=== PATIENT | male | born 1955 | race Caucasian/White ===

== ENCOUNTER 2018-05-04 06:05 | Day surgery (SDC) | payer MEDICAID ==
[~2018-05-04] VITALS: Ht 165.1 cm; Wt 76.2 kg
[~2018-05-04 06:05] MED LIST: BALANCED SALT IRRIG SOLN COMB1 500ML OP ONE; HYDR25TA PO; OMEP40CA34 PO; SIMV10TA6 PO
[2018-05-04] MEDS ORDERED: CYCLOPENTOLATE HCL 1% OPHTH DROPS 2ML LEFTEYE SCH (07:30)
[2018-05-04] MEDS ORDERED: PHENYLEPHRINE HCL 10% OPHTH DROPS 5ML LEFTEYE SCH (07:30)
[2018-05-04] MEDS ORDERED: TROPICAMIDE 1% OPHTH DROPS 15ML LEFTEYE SCH (07:30)
[2018-05-04] MEDS ORDERED: LACTATED RINGERS 1,000 ML IV SCH (08:15)
[2018-05-04] MEDS ORDERED: HYALURONATE SODIUM 14 MG/ML 0.85ML SYRINGE IO ONE ×2 (08:53→09:46)
[2018-05-04] MEDS ORDERED: PROPOFOL 200MG/20ML VIAL IV ONE (09:11)
[2018-05-04] MEDS ORDERED: MIDAZOLAM HCL 2 MG/2 ML VIAL ONE (09:11)
[2018-05-04] MEDS ORDERED: FENTANYL CITRATE/PF 50MCG/ML 2ML VIAL ONE (09:11)
[2018-05-04] MEDS ORDERED: ONDANSETRON HCL 4MG/2ML INJ IV PRN ×2 (09:30)
[2018-05-04] MEDS ORDERED: LABETALOL HCL 5MG/ML VIAL 20ML IV PRN (09:30)
[2018-05-04] MEDS ORDERED: HYDROMORPHONE HCL/PF 2MG/ML CPJ IV PRN ×2 (09:30)
[2018-05-04] MEDS ORDERED: MEPERIDINE HCL/PF 25MG/ML CPJ IV PRN ×2 (09:30)
[2018-05-04] MEDS ORDERED: LABETALOL 5MG/ML SYR 20 MG/4 ML SYRINGE IV PRN (09:30)
[2018-05-04] MEDS ORDERED: PHENYLEPHRINE HCL 10% OPHTH DROPS 5ML ONE (15:38)
[2018-05-04] MEDS ORDERED: TETRACAINE 0.5% OPHTH DROPS 4ML ONE (15:38)
[2018-05-04] MEDS ORDERED: ACETYLCHOLINE CHLORIDE INTRAOCULAR SOLUTION 1:100 ELECTROLYTE DILUENT IO ONE (15:38)
[2018-05-04] MEDS ORDERED: CIPROFLOXACIN 0.3% OPHTH SOLN 2.5ML ONE (15:38)
[2018-05-04] MEDS ORDERED: PREDNISOLONE ACETATE 1% OPHTH DROPS 1ML ONE (15:38)
[2018-05-04] MEDS ORDERED: NEO/POLYMYX B SULF/DEXAMETH OPHTH OINT 3.5GM ONE (15:38)
[2018-05-04] MEDS ORDERED: LIDOCAINE HCL 2%/EPINEPHRINE 1:100,000 20 ML VIAL INFIL ONE (15:38)
[2018-05-04] MEDS ORDERED: LIDOCAINE HCL/PF 2% 20 MG/ML 10ML VIAL ONE (15:38)
[2018-05-04] MEDS ORDERED: BALANCED SALT IRRIG SOLN 15ML ONE (15:38)
[2018-05-04] MEDS ORDERED: BUPIVACAINE HCL/PF 0.75% (7.5MG/ML) 10ML ONE (15:38)
[2018-05-04] MEDS ORDERED: CYCLOPENTOLATE HCL 1% OPHTH DROPS 2ML ONE (15:38)
== END 2018-05-04 10:50 | disposition home or self-care (01) ==
LOC: OR 06:05
PROVIDERS: ATTEND Ophthalmology
DX: H25.12 Age-related nuclear cataract, left eye (principal); H57.03 Miosis; I10 Essential (primary) hypertension; K21.9 Gastro-esophageal reflux disease without esophagitis; H21.541 Posterior synechiae (iris), right eye; Z98.890 Other specified postprocedural states; Z79.899 Other long term (current) drug therapy
CPT/HCPCS: 66982; 93005; J2250; J3010; J3490; J2704; V2632